=== PATIENT | female | born 1940 | race Caucasian/White ===

== ENCOUNTER 2020-05-09 10:58 | Inpatient (IN) | payer MEDICARE, BC ==
[2020-05-09] MEDS ORDERED: Acetaminophen 325 MG Tab PO PRN (12:34)
[2020-05-09] MEDS ORDERED: Temazepam 15 MG Cap PO PRN (12:34)
[2020-05-09] MEDS ORDERED: Ondansetron 4 MG Tab.DIS PO PRN (12:34)
--- NOTE | 2020-05-09 12:47 | PCM.HP ---
H&P History of Present Illness - General Date of Service: 05/09/20 Admit Problem/Dx: Admission Diagnosis/Problem Admission Diagnosis/Problem Weakness Source of Information: Patient - History of Present Illness Initial Comments - Free Text/Narative: Is a 80-year-old female with medical history of gastroesophageal reflux disease, spinal stenosis with hx of previous back surgery. The patient underwent repeat surgery couple of days ago. Has been recovering but feels weak. The patient is admitted to swing bed for continuation of physical and occupational therapy - Related Data Allergies/Adverse Reactions: Allergies Allergy/AdvReac Type Severity Reaction Status Date / Time alendronate sodium Allergy Nausea Verified 05/08/20 15:23 [From Fosamax] amoxicillin Allergy Other Verified 05/08/20 15:23 fentanyl Allergy Nausea and Verified 05/08/20 15:23 Vomiting psyllium [From Metamucil] Allergy Abdominal Verified 05/08/20 15:23 Cramps Sulfa (Sulfonamide Allergy Rash Verified 05/08/20 15:23 Antibiotics) Home Medications: Home Meds Acetaminophen/HYDROcodone [[place] 325-10 MG] 1 tab PO Q4HR PRN 05/08/20 [History] Hydrocortisone [Anusol-HC] 1 applic TOP DAILY 05/08/20 [History] L. 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 Spondylosis of cervical region without myelopathy or radiculopathy Social & Family History - Family History Family Medical History: No Pertinent Family History - Tobacco Use Tobacco Use Status *Q: Never Tobacco User Second Hand Smoke Exposure: No - Caffeine Use Caffeine Use: Reports: Coffee - Alcohol Use Days Per Week of Alcohol Use: 5 Number of Drinks Per Day: 1 Total Drinks Per Week: 5 Date of Last Drink: 04/30/20 - Recreational Drug Use Recreational Drug Use: No H&P Review of Systems - Review of Systems: Review Of Systems: See Below General: Reports: Malaise, Weakness Pulmonary: Reports: No Symptoms Cardiovascular: Reports: No Symptoms Gastrointestinal: Reports: No Symptoms Musculoskeletal: Reports: No Symptoms Skin: Reports: No Symptoms Exam - Exam Exam: See Below - Vital Signs Weight: 54.885 kg - Exam Quality Assessment: Supplemental Oxygen General: Alert, Oriented, Cooperative Neck: Supple, Trachea Midline, 2 Lungs: Clear to Auscultation, Normal Respiratory Effort Cardiovascular: Regular Rate, Regular Rhythm GI/Abdominal Exam: Normal Bowel Sounds, Soft, Non-Tender, No Organomegaly, No Distention, No Abnormal Bruit, No Mass, Pelvis Stable Problem List Initiated/Reviewed/Updated: Yes Orders Last 24hrs: Active Orders 24 hr Category Date Time Status Patient Status [ADT] Routine ADT 05/09/20 11:09 Active Height and Weight [RC] PER UNIT ROUTINE Care 05/09/20 12:35 Ordered Intake and Output [RC] QSHIFT Care 05/09/20 12:35 Ordered Oxygen Therapy [RC] PRN Care 05/09/20 12:34 Ordered Up ad Kira [RC] ASDIRECTED Care 05/09/20 12:34 Ordered VTE/DVT Education [RC] PER UNIT ROUTINE Care 05/09/20 12:34 Ordered Vital Signs [RC] PER UNIT ROUTINE Care 05/09/20 12:34 Ordered OT Evaluation and Treatment [CONS] Routine Cons 05/09/20 12:34 Ordered PT Evaluation and Treatment [CONS] Routine Cons 05/09/20 12:34 Ordered Regular Diet [DIET] Diet 05/09/20 Lunch Active Acetaminophen [TylenoL] Med 05/09/20 12:34 Ordered 650 mg PO Q4H PRN Acetaminophen/HYDROcodone [[place] 325-10 MG] Med 05/09/20 12:34 Ordered 1 tab PO Q4HR PRN Docusate Sodium [Colace] Med 05/09/20 12:34 Ordered 100 mg PO BID PRN Hydrocortisone [Anusol-HC] Med 05/10/20 09:00 Ordered 1 applic TOP DAILY L. Acidophilus/Pectin, [place] [Acidophilus Capsule] Med 05/10/20 09:00 Ordered 10 mg PO DAILY Mirtazapine [Remeron] Med 05/09/20 21:00 Ordered 15 mg PO BEDTIME Multivitamin [Multivitamin] Med 05/10/20 09:00 Ordered 1 tab PO DAILY Omeprazole Med 05/10/20 09:00 Ordered 20 mg PO DAILY Ondansetron [Zofran ODT] Med 05/09/20 12:34 Ordered 4 mg PO Q6H PRN Temazepam [Restoril] Med 05/09/20 12:34 Ordered 15 mg PO BEDTIME PRN Resuscitation Status Routine Resus Stat 05/09/20 12:34 Ordered Medication Orders Acetaminophen (Tylenol) 650 mg PO Q4H PRN PRN Reason: Pain (Mild 1-3)/fever Hydrocodone Bitart/Acetaminophen ([place] 325-10 Mg) 1 tab PO Q4H PRN PRN Reason: Pain Docusate Sodium (Colace) 100 mg PO BID PRN PRN Reason: Constipation Mirtazapine (Remeron) 15 mg PO BEDTIME [facility] Multivitamins (Thera) 1 each PO DAILY [facility] Non-Formulary Medication (Hydrocortisone [Anusol-Hc]) 1 applic TOP DAILY [facility] Non-Formulary Medication (L. Acidophilus/Pectin, [place] [Acidophilus Capsule]) 10 mg PO DAILY [facility] Omeprazole (Omeprazole) 20 mg PO ACBREAKFAST [facility] Ondansetron HCl (Zofran Odt) 4 mg PO Q6H PRN PRN Reason: nausea, able to take PO Temazepam (Restoril) 15 mg PO BEDTIME PRN PRN Reason: Sleep Assessment/Plan Comment:: is a 80-year-old female who underwent surgery for chronic low back pain, spinal stenosis. She was transferred to swing bed for physical and occupational therapy. #. Status post spinal surgery Patient had surgery for spinal stenosis #. Gastroesophageal reflux disease Proton pump inhibitor #. Elevated blood pressure Hx has no history of chronic hypertension Admit patient to swing bed. Start patient on [place] for pain control Consult physical and occupational therapy Monitor vital signs.
[2020-05-09] MEDS: Acetaminophen/HYDROcodone 325-10 MG Tab PO PRN ×2 (15:52→21:41)
[2020-05-09] MEDS: Docusate Sodium 100 MG Cap PO PRN (21:20)
[2020-05-09] MEDS: Mirtazapine 15 MG Tab PO SCH (21:20)
[2020-05-10] MEDS: Omeprazole 20 MG Cap.CR PO SCH (06:31)
[2020-05-10] MEDS: Acetaminophen/HYDROcodone 325-10 MG Tab PO PRN ×2 (06:33→21:20)
[2020-05-10] MEDS: Multivitamins,Therapeutic Tab PO SCH (08:51)
[2020-05-10] MEDS: Calcium Carbonate/Vitamin D3 1250 MG-200 Unit Tab PO SCH (17:32)
[2020-05-10] MEDS: Mirtazapine 15 MG Tab PO SCH (21:20)
[2020-05-11] MEDS: Omeprazole 20 MG Cap.CR PO SCH (06:34)
[2020-05-11] MEDS: Calcium Carbonate/Vitamin D3 1250 MG-200 Unit Tab PO SCH ×2 (08:08→17:30)
[2020-05-11] MEDS: Acetaminophen/HYDROcodone 325-10 MG Tab PO PRN ×2 (08:08→20:47)
[2020-05-11] MEDS: Multivitamins,Therapeutic Tab PO SCH (08:08)
[2020-05-11] MEDS: Docusate Sodium 100 MG Cap PO PRN (20:47)
[2020-05-11] MEDS: Mirtazapine 15 MG Tab PO SCH (20:47)
[2020-05-12] MEDS: Omeprazole 20 MG Cap.CR PO SCH (05:45)
[2020-05-12] MEDS: Calcium Carbonate/Vitamin D3 1250 MG-200 Unit Tab PO SCH ×2 (09:11→18:00)
[2020-05-12] MEDS: Multivitamins,Therapeutic Tab PO SCH (09:12)
[2020-05-12] MEDS: Docusate Sodium 100 MG Cap PO PRN (09:27)
[2020-05-12] MEDS: Mirtazapine 15 MG Tab PO SCH (21:00)
[2020-05-12] MEDS: Acetaminophen/HYDROcodone 325-10 MG Tab PO PRN (21:01)
[2020-05-13] MEDS: Omeprazole 20 MG Cap.CR PO SCH (06:34)
[2020-05-13] MEDS: Multivitamins,Therapeutic Tab PO SCH (08:06)
[2020-05-13] MEDS: Calcium Carbonate/Vitamin D3 1250 MG-200 Unit Tab PO SCH ×2 (08:06→17:28)
[2020-05-13] MEDS: Acetaminophen/HYDROcodone 325-10 MG Tab PO PRN ×3 (08:49→21:04)
[2020-05-13] MEDS ORDERED: Hydrocortisone 2.5% Crm 30 GM Tube TOP SCH (09:00)
[2020-05-13] MEDS ORDERED: Hydrocortisone 2.5% Crm 30 GM Tube TOP PRN (10:27)
[2020-05-13] MEDS ORDERED: Lactulose Soln 10 GM/15 ML 30 ML UD Cup PO PRN (13:02)
[2020-05-13] MEDS: Polyethylene Glycol 3350 Powder 17 GM Packet PO SCH (13:49)
[2020-05-13] MEDS ORDERED: Heparin Sodium 5,000 Units/ML Vial SUBCUT SCH (14:00)
[2020-05-13] MEDS: Mirtazapine 15 MG Tab PO SCH (21:04)
[2020-05-14] MEDS: Omeprazole 20 MG Cap.CR PO SCH (05:51)
[2020-05-14] MEDS: Multivitamins,Therapeutic Tab PO SCH (08:20)
[2020-05-14] MEDS: Calcium Carbonate/Vitamin D3 1250 MG-200 Unit Tab PO SCH ×2 (08:20→17:01)
[2020-05-14] MEDS: Acetaminophen/HYDROcodone 325-10 MG Tab PO PRN ×2 (08:21→17:01)
[2020-05-14] MEDS: Polyethylene Glycol 3350 Powder 17 GM Packet PO SCH (08:22)
[2020-05-14 12:26] LABS: ANION GAP 12.3 mEq/L (7-13); CHLORIDE,CL 98 mmol/L (98-107); SODIUM,NA 136 mmol/L (136-145)
[2020-05-14] MEDS: Enoxaparin 40 MG/0.4 ML Syringe SUBCUT SCH (13:19)
--- NOTE | 2020-05-14 13:21 | PCM.PN ---
- General Info Date of Service: 05/14/20 Subjective Update: feeling well Does have some low back pain, moderate, worse with activity, associated with the right leg pain radiating from the back to the knee area. This is since surgery Tolerating it well. No chest pain, no shortness of breath. Working with physical therapy - Review of Systems General: Reports: Weakness, Night Sweats. Denies: Fever Pulmonary: Denies: Shortness of Breath Cardiovascular: Denies: Chest Pain, Edema Genitourinary: Denies: Dysuria Neurological: Denies: Headache Psychiatric: Denies: Confusion - Patient Data Vitals - Most Recent: Last Vital Signs Temp 98.1 F 05/14/20 07:46 Pulse 68 05/14/20 07:46 Resp 18 05/14/20 07:46 BP 148/82 H 05/14/20 07:46 Pulse Ox 94 L 05/14/20 07:46 Weight - Most Recent: 112 lb 9.6 oz I&O - Last 24 Hours: Intake & Output 05/13/20 05/14/20 05/14/20 22:59 06:59 14:59 Intake Total 740 940 Balance 740 940 Lab Results Last 24 Hours: Laboratory Results - last 24 hr 05/14/20 05/14/20 Range/Units 12:07 12:07 WBC 5.9 (5.0-10.0) 10^3/uL RBC 3.73 L (4.2-5.4) 10^6/uL Hgb 12.0 (12.0-16.0) g/dL Hct 35.7 L (37.0-47.0) % MCV 95.7 (80-100) fL MCH 32.2 (27.0-34.0) pg MCHC 33.6 (33.0-35.0) g/dL Plt Count 280 (150-450) 10^3/uL Neut % (Auto) 60.6 (42.2-75.2) % Lymph % (Auto) 27.6 (20.5-50.1) % [place] % (Auto) 9.4 H (2-8) % Eos % (Auto) 1.7 (1.0-3.0) % Baso % (Auto) 0.7 (0.0-1.0) % Sodium 136 (136-145) mmol/L Potassium 4.3 (3.5-5.1) mmol/L Chloride 98 (98-107) mmol/L Carbon Dioxide 30 (21-32) mmol/L Anion Gap 12.3 (7-13) mEq/L BUN 17 (7-18) mg/dL Creatinine 0.74 (0.55-1.02) mg/dL Est Cr Clr Drug Dosing 49.70 mL/min Estimated GFR (MDRD) > 60 Glucose 87 (74-99) mg/dL Calcium 9.0 (8.5-10.1) mg/dL Med Orders - Current: Current Medications Acetaminophen (Tylenol) 650 mg PO Q4H PRN PRN Reason: Pain (Mild 1-3)/fever Hydrocodone Bitart/Acetaminophen ([place] 325-10 Mg) 1 tab PO Q4H PRN PRN Reason: Pain Last Admin: 05/14/20 08:21 Dose: 1 tab Documented by: Calcium Carbonate (Calcium Carbonate/Vitamin D 1250 Mg-200 Unit) 1 tab PO BIDMEALS [facility] Last Admin: 05/14/20 08:20 Dose: 1 tab Documented by: Docusate Sodium (Colace) 100 mg PO BID PRN PRN Reason: Constipation Last Admin: 05/12/20 09:27 Dose: 100 mg Documented by: Enoxaparin Sodium (Lovenox) 40 mg SUBCUT DAILY [facility] Hydrocortisone (Hydrocortisone 2.5% Crm) 1 gm TOP DAILY PRN PRN Reason: Hemorrhoids Lactulose (Cephulac) 20 gm PO BID PRN PRN Reason: Constipation Last Admin: 05/13/20 13:49 Dose: 20 gm Documented by: Mirtazapine (Remeron) 15 mg PO BEDTIME [facility] Last Admin: 05/13/20 21:04 Dose: 15 mg Documented by: Multivitamins (Thera) 1 each PO DAILY [facility] Last Admin: 05/14/20 08:20 Dose: 1 each Documented by: Non-Formulary Medication (L. Acidophilus/Pectin, [place] [Acidophilus Capsule]) 10 mg PO DAILY [facility] Omeprazole (Omeprazole) 20 mg PO ACBREAKFAST [facility] Last Admin: 05/14/20 05:51 Dose: 20 mg Documented by: Ondansetron HCl (Zofran Odt) 4 mg PO Q6H PRN PRN Reason: nausea, able to take PO Polyethylene Glycol (Miralax) 17 gm PO DAILY [facility] Last Admin: 05/14/20 08:22 Dose: Not Given Documented by: Senna/Docusate Sodium (Senna Plus) 1 tab PO BID [facility] Last Admin: 05/14/20 08:20 Dose: 1 tab Documented by: Temazepam (Restoril) 15 mg PO BEDTIME PRN PRN Reason: Sleep Discontinued Medications Heparin Sodium (Porcine) (Heparin Sodium) 5,000 units SUBCUT Q8HR [facility] Last Admin: 05/13/20 13:45 Dose: 5,000 units Documented by: Hydrocortisone (Hydrocortisone 2.5% Crm) 0 gm TOP DAILY [facility] Last Admin: 05/13/20 08:50 Dose: Not Given Documented by: - Exam General: Alert, Oriented Neck: Supple Lungs: Clear to Auscultation, Normal Respiratory Effort Cardiovascular: Regular Rate, Regular Rhythm GI/Abdominal Exam: Normal Bowel Sounds, Soft, Non-Tender Extremities: No Pedal Edema Sepsis Event Note - Evaluation Sepsis Screening Result: No Definite Risk - Focused Exam Vital Signs: Vital Signs Temp Pulse Resp BP Pulse Ox 05/14/20 07:46 98.1 F 68 18 148/82 H 94 L - Problem List & Annotations (1) Back pain SNOMED Code(s): 956248584 Code(s): M54.9 - DORSALGIA, UNSPECIFIED Status: Acute Current Visit: Yes (2) GERD (gastroesophageal reflux disease) SNOMED Code(s): 852232050 Code(s): K21.9 - GASTRO-ESOPHAGEAL REFLUX DISEASE WITHOUT ESOPHAGITIS Status: Acute Current Visit: Yes - Problem List Review Problem List Initiated/Reviewed/Updated: Yes - My Orders Last 24 Hours: My Active Orders 05/13/20 13:02 Lactulose [Cephulac] 20 gm PO BID PRN 05/13/20 13:15 polyethylene glycoL 3350 [MiraLAX] 17 gm PO DAILY 05/14/20 13:00 Enoxaparin [Lovenox] 40 mg SUBCUT DAILY 05/18/20 05:15 BASIC METABOLIC PANEL,BMP [CHEM] AM CBC WITH AUTO DIFF [HEME] AM - Plan Plan:: 80-year-old female who underwent surgery for chronic low back pain, spinal stenosis. She was transferred to [facility] bed for physical and occupational therapy. #. Status post spinal surgery Patient had surgery for spinal stenosis we will continue to work physical therapy and occupational therapy #. Gastroesophageal reflux disease Proton pump inhibitor #. episodically Elevated blood pressure Hx has no history of chronic hypertension we'll monitor, will not start blood pressure medications at this time DVT prophylaxis with Lovenox
[2020-05-14] MEDS: Mirtazapine 15 MG Tab PO SCH (21:43)
[2020-05-14] MEDS: [UNRECOGNIZED DRUG - MIXTURE] PO SCH ×2 (22:06→22:07)
[2020-05-15] MEDS: Omeprazole 20 MG Cap.CR PO SCH (05:52)
[2020-05-15] MEDS: Acetaminophen/HYDROcodone 325-10 MG Tab PO PRN ×3 (05:52→21:20)
[2020-05-15] MEDS: Multivitamins,Therapeutic Tab PO SCH (09:46)
[2020-05-15] MEDS: Calcium Carbonate/Vitamin D3 1250 MG-200 Unit Tab PO SCH ×2 (09:46→17:51)
[2020-05-15] MEDS: Polyethylene Glycol 3350 Powder 17 GM Packet PO SCH (09:47)
[2020-05-15] MEDS: Enoxaparin 40 MG/0.4 ML Syringe SUBCUT SCH (09:47)
[2020-05-15] MEDS: Mirtazapine 15 MG Tab PO SCH (21:19)
[2020-05-16] MEDS: Omeprazole 20 MG Cap.CR PO SCH (06:09)
[2020-05-16] MEDS: Polyethylene Glycol 3350 Powder 17 GM Packet PO SCH ×2 (08:04→09:30)
[2020-05-16] MEDS: Calcium Carbonate/Vitamin D3 1250 MG-200 Unit Tab PO SCH ×2 (08:04→17:16)
[2020-05-16] MEDS: Enoxaparin 40 MG/0.4 ML Syringe SUBCUT SCH (08:04)
[2020-05-16] MEDS: Multivitamins,Therapeutic Tab PO SCH (08:04)
[2020-05-16] MEDS: Mirtazapine 15 MG Tab PO SCH (21:03)
[2020-05-16] MEDS: Acetaminophen/HYDROcodone 325-10 MG Tab PO PRN (22:20)
[2020-05-17] MEDS: Acetaminophen/HYDROcodone 325-10 MG Tab PO PRN ×2 (06:41→20:09)
[2020-05-17] MEDS: Omeprazole 20 MG Cap.CR PO SCH (06:41)
[2020-05-17] MEDS: Calcium Carbonate/Vitamin D3 1250 MG-200 Unit Tab PO SCH ×2 (08:03→17:24)
[2020-05-17] MEDS: Enoxaparin 40 MG/0.4 ML Syringe SUBCUT SCH (08:04)
[2020-05-17] MEDS: Multivitamins,Therapeutic Tab PO SCH (08:31)
[2020-05-17] MEDS: Polyethylene Glycol 3350 Powder 17 GM Packet PO SCH (08:31)
[2020-05-17] MEDS: Mirtazapine 15 MG Tab PO SCH (21:14)
[2020-05-18] MEDS: Acetaminophen/HYDROcodone 325-10 MG Tab PO PRN ×2 (03:40→20:37)
[2020-05-18] MEDS ORDERED: amLODIPine 5 MG Tab PO ONE (04:54)
[2020-05-18] MEDS: Omeprazole 20 MG Cap.CR PO SCH ×2 (05:15→06:00)
[2020-05-18 06:49] LABS: ANION GAP 8.4 mEq/L (7-13); CHLORIDE,CL 101 mmol/L (98-107); SODIUM,NA 138 mmol/L (136-145)
[2020-05-18] MEDS: Calcium Carbonate/Vitamin D3 1250 MG-200 Unit Tab PO SCH ×2 (08:21→17:13)
[2020-05-18] MEDS: Enoxaparin 40 MG/0.4 ML Syringe SUBCUT SCH (08:21)
[2020-05-18] MEDS: Multivitamins,Therapeutic Tab PO SCH (08:21)
[2020-05-18] MEDS: Polyethylene Glycol 3350 Powder 17 GM Packet PO SCH (08:23)
--- NOTE | 2020-05-18 12:04 | PCM.PN ---
- General Info Date of Service: 05/18/20 Admission Dx/Problem (Free Text): Admission Diagnosis/Problem Admission Diagnosis/Problem Weakness Subjective Update: feeling well last night noted chronic right knee pain, got better after pain medication Was associated with high blood pressures Got a dose of Norvasc by mouth No chest pain, no shortness of breath. Working with physical therapy Functional Status: Reports: Tolerating Diet, Ambulating - Review of Systems General: Reports: Weakness. Denies: Fever Pulmonary: Denies: Shortness of Breath Cardiovascular: Denies: Chest Pain, Edema Gastrointestinal: Denies: Abdominal Pain Genitourinary: Denies: Dysuria - Patient Data Vitals - Most Recent: Last Vital Signs Temp 98.7 F 05/18/20 08:00 Pulse 69 05/18/20 08:00 Resp 20 05/18/20 08:00 BP 147/90 H 05/18/20 08:00 Pulse Ox 100 05/18/20 08:00 Weight - Most Recent: 112 lb 9.6 oz I&O - Last 24 Hours: Intake & Output 05/17/20 05/18/20 05/18/20 22:59 06:59 14:59 Intake Total 150 150 650 Balance 150 150 650 Lab Results Last 24 Hours: Laboratory Results - last 24 hr 05/18/20 05/18/20 Range/Units 06:08 06:08 WBC 4.9 L (5.0-10.0) 10^3/uL RBC 3.88 L (4.2-5.4) 10^6/uL Hgb 12.5 (12.0-16.0) g/dL Hct 37.3 (37.0-47.0) % MCV 96.1 (80-100) fL MCH 32.2 (27.0-34.0) pg MCHC 33.5 (33.0-35.0) g/dL Plt Count 324 (150-450) 10^3/uL Neut % (Auto) 60.2 (42.2-75.2) % Lymph % (Auto) 28.7 (20.5-50.1) % [place] % (Auto) 7.9 (2-8) % Eos % (Auto) 2.4 (1.0-3.0) % Baso % (Auto) 0.8 (0.0-1.0) % Sodium 138 (136-145) mmol/L Potassium 4.4 (3.5-5.1) mmol/L Chloride 101 (98-107) mmol/L Carbon Dioxide 33 H (21-32) mmol/L Anion Gap 8.4 (7-13) mEq/L BUN 14 (7-18) mg/dL Creatinine 0.81 (0.55-1.02) mg/dL Est Cr Clr Drug Dosing 45.41 mL/min Estimated GFR (MDRD) > 60 Glucose 93 (74-99) mg/dL Calcium 9.3 (8.5-10.1) mg/dL Med Orders - Current: Current Medications Acetaminophen (Tylenol) 650 mg PO Q4H PRN PRN Reason: Pain (Mild 1-3)/fever Hydrocodone Bitart/Acetaminophen ([place] 325-10 Mg) 1 tab PO Q4H PRN PRN Reason: Pain Last Admin: 05/18/20 03:40 Dose: 1 tab Documented by: Calcium Carbonate (Calcium Carbonate/Vitamin D 1250 Mg-200 Unit) 1 tab PO BIDMEALS [facility] Last Admin: 05/18/20 08:21 Dose: 1 tab Documented by: Docusate Sodium (Colace) 100 mg PO BID PRN PRN Reason: Constipation Last Admin: 05/12/20 09:27 Dose: 100 mg Documented by: Enoxaparin Sodium (Lovenox) 40 mg SUBCUT DAILY [facility] Last Admin: 05/18/20 08:21 Dose: 40 mg Documented by: Hydrocortisone (Hydrocortisone 2.5% Crm) 1 gm TOP DAILY PRN PRN Reason: Hemorrhoids Lactulose (Cephulac) 20 gm PO BID PRN PRN Reason: Constipation Last Admin: 05/13/20 13:49 Dose: 20 gm Documented by: Mirtazapine (Remeron) 15 mg PO BEDTIME [facility] Last Admin: 05/17/20 21:14 Dose: 15 mg Documented by: Multivitamins (Thera) 1 each PO DAILY [facility] Last Admin: 05/18/20 08:21 Dose: 1 each Documented by: Omeprazole (Omeprazole) 20 mg PO ACBREAKFAST [facility] Last Admin: 05/18/20 06:00 Dose: Not Given Documented by: Ondansetron HCl (Zofran Odt) 4 mg PO Q6H PRN PRN Reason: nausea, able to take PO Polyethylene Glycol (Miralax) 17 gm PO DAILY [facility] Last Admin: 05/18/20 08:23 Dose: Not Given Documented by: Senna/Docusate Sodium (Senna Plus) 1 tab PO BID [facility] Last Admin: 05/18/20 08:21 Dose: 1 tab Documented by: Temazepam (Restoril) 15 mg PO BEDTIME PRN PRN Reason: Sleep Discontinued Medications Amlodipine Besylate (Norvasc) 2.5 mg PO ONETIME ONE Stop: 05/18/20 04:55 Last Admin: 05/18/20 05:06 Dose: 2.5 mg Documented by: Heparin Sodium (Porcine) (Heparin Sodium) 5,000 units SUBCUT Q8HR [facility] Last Admin: 05/13/20 13:45 Dose: 5,000 units Documented by: Hydrocortisone (Hydrocortisone 2.5% Crm) 0 gm TOP DAILY [facility] Last Admin: 05/13/20 08:50 Dose: Not Given Documented by: Non-Formulary Medication (L. Acidophilus/Pectin, [place] [Acidophilus Capsule]) 10 mg PO DAILY [facility] Last Admin: 05/14/20 22:07 Dose: Not Given Documented by: - Exam General: Alert Neck: Supple Lungs: Clear to Auscultation, Normal Respiratory Effort Cardiovascular: Regular Rate, Regular Rhythm GI/Abdominal Exam: Normal Bowel Sounds, Soft, Non-Tender Extremities: No Pedal Edema Sepsis Event Note - Evaluation Sepsis Screening Result: No Definite Risk - Focused Exam Vital Signs: Vital Signs Temp Pulse Resp BP BP Pulse Ox 05/18/20 08:00 98.7 F 69 20 147/90 H 100 05/18/20 05:06 168/91 H - Problem List & Annotations (1) Back pain SNOMED Code(s): 939020983 Code(s): M54.9 - DORSALGIA, UNSPECIFIED Status: Acute Current Visit: Yes (2) GERD (gastroesophageal reflux disease) SNOMED Code(s): 358544859 Code(s): K21.9 - GASTRO-ESOPHAGEAL REFLUX DISEASE WITHOUT ESOPHAGITIS S tatus: Acute Current Visit: Yes - Problem List Review Problem List Initiated/Reviewed/Updated: Yes - Plan Plan:: 80-year-old female who underwent surgery for chronic low back pain, spinal stenosis. She was transferred to [facility] for physical and occupational therapy. #. Status post spinal surgery Patient had surgery for spinal stenosis she will continue to work with physical therapy and occupational therapy #. Gastroesophageal reflux disease Proton pump inhibitor #. episodically Elevated blood pressure Hx has no history of chronic hypertension start norvas control pain DVT prophylaxis with Lovenox
[2020-05-18] MEDS: Mirtazapine 15 MG Tab PO SCH (20:37)
[2020-05-19] MEDS: Acetaminophen/HYDROcodone 325-10 MG Tab PO PRN ×2 (01:10→21:32)
[2020-05-19] MEDS: Omeprazole 20 MG Cap.CR PO SCH (05:52)
[2020-05-19] MEDS: Enoxaparin 40 MG/0.4 ML Syringe SUBCUT SCH (08:56)
[2020-05-19] MEDS: Calcium Carbonate/Vitamin D3 1250 MG-200 Unit Tab PO SCH ×2 (08:56→17:08)
[2020-05-19] MEDS: Polyethylene Glycol 3350 Powder 17 GM Packet PO SCH (08:57)
[2020-05-19] MEDS: Multivitamins,Therapeutic Tab PO SCH (08:57)
[2020-05-19] MEDS: amLODIPine 5 MG Tab PO SCH (11:57)
[2020-05-19] MEDS: Mirtazapine 15 MG Tab PO SCH (21:32)
[2020-05-20] MEDS: Omeprazole 20 MG Cap.CR PO SCH (06:01)
[2020-05-20] MEDS: amLODIPine 5 MG Tab PO SCH (08:27)
[2020-05-20] MEDS: Multivitamins,Therapeutic Tab PO SCH (08:28)
[2020-05-20] MEDS: Calcium Carbonate/Vitamin D3 1250 MG-200 Unit Tab PO SCH ×2 (08:28→17:44)
[2020-05-20] MEDS: Polyethylene Glycol 3350 Powder 17 GM Packet PO SCH (08:28)
[2020-05-20] MEDS: Enoxaparin 40 MG/0.4 ML Syringe SUBCUT SCH (08:29)
[2020-05-20] MEDS: Mirtazapine 15 MG Tab PO SCH (20:48)
[2020-05-20] MEDS: Acetaminophen/HYDROcodone 325-10 MG Tab PO PRN (20:48)
[2020-05-21] MEDS: traMADol 50 MG Tab PO PRN (03:17)
[2020-05-21] MEDS: Omeprazole 20 MG Cap.CR PO SCH (05:48)
[2020-05-21] MEDS: Polyethylene Glycol 3350 Powder 17 GM Packet PO SCH (08:56)
[2020-05-21] MEDS: amLODIPine 5 MG Tab PO SCH (08:56)
[2020-05-21] MEDS: Calcium Carbonate/Vitamin D3 1250 MG-200 Unit Tab PO SCH ×2 (08:56→18:22)
[2020-05-21] MEDS: Enoxaparin 40 MG/0.4 ML Syringe SUBCUT SCH (08:56)
[2020-05-21] MEDS: Multivitamins,Therapeutic Tab PO SCH (08:57)
[2020-05-21] MEDS: Mirtazapine 15 MG Tab PO SCH (21:34)
[2020-05-21] MEDS: Acetaminophen/HYDROcodone 325-10 MG Tab PO PRN (21:43)
[2020-05-22] MEDS: Omeprazole 20 MG Cap.CR PO SCH (05:36)
[2020-05-22] MEDS: Multivitamins,Therapeutic Tab PO SCH (08:58)
[2020-05-22] MEDS: amLODIPine 5 MG Tab PO SCH (08:58)
[2020-05-22] MEDS: Polyethylene Glycol 3350 Powder 17 GM Packet PO SCH (08:59)
[2020-05-22] MEDS: Calcium Carbonate/Vitamin D3 1250 MG-200 Unit Tab PO SCH ×2 (08:59→17:19)
[2020-05-22] MEDS: Enoxaparin 40 MG/0.4 ML Syringe SUBCUT SCH (08:59)
[2020-05-22] MEDS: Acetaminophen/HYDROcodone 325-10 MG Tab PO PRN (21:44)
[2020-05-22] MEDS: Mirtazapine 15 MG Tab PO SCH (21:44)
[2020-05-23] MEDS: Omeprazole 20 MG Cap.CR PO SCH (05:10)
[2020-05-23] MEDS: Calcium Carbonate/Vitamin D3 1250 MG-200 Unit Tab PO SCH ×2 (08:28→17:57)
[2020-05-23] MEDS: amLODIPine 5 MG Tab PO SCH (08:29)
[2020-05-23] MEDS: Multivitamins,Therapeutic Tab PO SCH (08:29)
[2020-05-23] MEDS: Polyethylene Glycol 3350 Powder 17 GM Packet PO SCH (08:30)
[2020-05-23] MEDS: Enoxaparin 40 MG/0.4 ML Syringe SUBCUT SCH (08:30)
[2020-05-23] MEDS: Acetaminophen/HYDROcodone 325-10 MG Tab PO PRN (21:45)
[2020-05-23] MEDS: Mirtazapine 15 MG Tab PO SCH (21:45)
[2020-05-24] MEDS: Omeprazole 20 MG Cap.CR PO SCH (06:02)
[2020-05-24] MEDS: Calcium Carbonate/Vitamin D3 1250 MG-200 Unit Tab PO SCH ×2 (08:51→17:23)
[2020-05-24] MEDS: Multivitamins,Therapeutic Tab PO SCH (08:51)
[2020-05-24] MEDS: Enoxaparin 40 MG/0.4 ML Syringe SUBCUT SCH (08:52)
[2020-05-24] MEDS: amLODIPine 5 MG Tab PO SCH (08:52)
[2020-05-24] MEDS: Polyethylene Glycol 3350 Powder 17 GM Packet PO SCH (08:53)
[2020-05-24] MEDS ORDERED: Lidocaine 5% 700 MG Patch TRDERM SCH (11:45)
[2020-05-24] MEDS: Lidocaine 5% 700 MG Patch TRDERM SCH (21:18)
[2020-05-24] MEDS: traMADol 50 MG Tab PO PRN (21:25)
[2020-05-24] MEDS: Mirtazapine 15 MG Tab PO SCH (21:26)
[2020-05-25] MEDS: Omeprazole 20 MG Cap.CR PO SCH (05:54)
[2020-05-25] MEDS: Enoxaparin 40 MG/0.4 ML Syringe SUBCUT SCH (08:48)
[2020-05-25] MEDS: Multivitamins,Therapeutic Tab PO SCH (08:49)
[2020-05-25] MEDS: Calcium Carbonate/Vitamin D3 1250 MG-200 Unit Tab PO SCH ×2 (08:49→17:56)
[2020-05-25] MEDS: amLODIPine 5 MG Tab PO SCH (08:49)
[2020-05-25] MEDS: Polyethylene Glycol 3350 Powder 17 GM Packet PO SCH (09:00)
[2020-05-25] MEDS ORDERED: Acetaminophen/HYDROcodone 325-10 MG Tab PO PRN ×2 (10:44→17:48)
--- NOTE | 2020-05-25 10:48 | PCM.PN ---
- General Info Date of Service: 05/25/20 Admission Dx/Problem (Free Text): Admission Diagnosis/Problem Admission Diagnosis/Problem Weakness Subjective Update: Is a 80-year-old female with medical history of gastroesophageal reflux disease, spinal stenosis with hx of previous back surgery. The patient underwent repeat surgery. Has been recovering but feels weak. Was discharged to [facility] for continuation of physical and occupational therapy Patient was seen and examined today. Chart reviewed. She is doing okay. Offers no new complaint Overnight uneventful. Functional Status: Reports: Pain Controlled - Review of Systems General: Reports: No Symptoms HEENT: Reports: No Symptoms Pulmonary: Reports: No Symptoms Cardiovascular: Reports: No Symptoms Gastrointestinal: Reports: No Symptoms Genitourinary: Reports: No Symptoms Musculoskeletal: Reports: No Symptoms Skin: Reports: No Symptoms Neurological: Reports: No Symptoms Psychiatric: Reports: No Symptoms - Patient Data Vitals - Most Recent: Last Vital Signs Temp 98.3 F 05/25/20 08:00 Pulse 83 05/25/20 08:00 Resp 18 05/25/20 08:00 BP 111/74 05/25/20 08:49 Pulse Ox 96 05/25/20 08:00 Weight - Most Recent: 110 lb I&O - Last 24 Hours: Intake & Output 05/24/20 05/25/20 05/25/20 22:59 06:59 14:59 Intake Total 450 200 Balance 450 200 Med Orders - Current: Current Medications Acetaminophen (Tylenol) 650 mg PO Q4H PRN PRN Reason: Pain (Mild 1-3)/fever Hydrocodone Bitart/Acetaminophen ([place] 325-10 Mg) 1 tab PO Q6H PRN PRN Reason: Pain (severe 7-10) Amlodipine Besylate (Norvasc) 2.5 mg PO DAILY [facility] Last Admin: 05/25/20 08:49 Dose: 2.5 mg Documented by: Calcium Carbonate (Calcium Carbonate/Vitamin D 1250 Mg-200 Unit) 1 tab PO BIDMEALS [facility] Last Admin: 05/25/20 08:49 Dose: 1 tab Documented by: Docusate Sodium (Colace) 100 mg PO BID PRN PRN Reason: Constipation Last Admin: 05/12/20 09:27 Dose: 100 mg Documented by: Enoxaparin Sodium (Lovenox) 40 mg SUBCUT DAILY [facility] Last Admin: 05/25/20 08:48 Dose: 40 mg Documented by: Hydrocortisone (Hydrocortisone 2.5% Crm) 1 gm TOP DAILY PRN PRN Reason: Hemorrhoids Lactulose (Cephulac) 20 gm PO BID PRN PRN Reason: Constipation Last Admin: 05/13/20 13:49 Dose: 20 gm Documented by: Lidocaine (Lidoderm 5%) 700 mg TRDERM DAILY@2100 [facility] Last Admin: 05/24/20 21:18 Dose: 700 mg Documented by: Mirtazapine (Remeron) 15 mg PO BEDTIME [facility] Last Admin: 05/24/20 21:26 Dose: Not Given Documented by: Miscellaneous Information (Remove Patch) 1 ea TRDERM DAILY [facility] Last Admin: 05/25/20 09:00 Dose: 1 ea Documented by: Multivitamins (Thera) 1 each PO DAILY [facility] Last Admin: 05/25/20 08:49 Dose: 1 each Documented by: Omeprazole (Omeprazole) 20 mg PO ACBREAKFAST [facility] Last Admin: 05/25/20 05:54 Dose: 20 mg Documented by: Ondansetron HCl (Zofran Odt) 4 mg PO Q6H PRN PRN Reason: nausea, able to take PO Polyethylene Glycol (Miralax) 17 gm PO DAILY [facility] Last Admin: 05/25/20 09:00 Dose: Not Given Documented by: Senna/Docusate Sodium (Senna Plus) 1 tab PO BID [facility] Last Admin: 05/25/20 08:49 Dose: 1 tab Documented by: Temazepam (Restoril) 15 mg PO BEDTIME PRN PRN Reason: Sleep Tramadol HCl (Ultram) 50 mg PO Q8H PRN PRN Reason: Pain (moderate 4-6) Last Admin: 05/24/20 21:25 Dose: 50 mg Documented by: Discontinued Medications Hydrocodone Bitart/Acetaminophen ([place] 325-10 Mg) 1 tab PO Q4H PRN PRN Reason: Pain (moderate 4-6) Last Admin: 05/23/20 21:45 Dose: 1 tab Documented by: Amlodipine Besylate (Norvasc) 2.5 mg PO ONETIME ONE Stop: 05/18/20 04:55 Last Admin: 05/18/20 05:06 Dose: 2.5 mg Documented by: Heparin Sodium (Porcine) (Heparin Sodium) 5,000 units SUBCUT Q8HR [facility] Last Admin: 05/13/20 13:45 Dose: 5,000 units Documented by: Hydrocortisone (Hydrocortisone 2.5% Crm) 0 gm TOP DAILY [facility] Last Admin: 05/13/20 08:50 Dose: Not Given Documented by: Lidocaine (Lidoderm 5%) 700 mg TRDERM DAILY [facility] Last Admin: 05/24/20 15:07 Dose: Not Given Documented by: Non-Formulary Medication (L. Acidophilus/Pectin, [place] [Acidophilus Capsule]) 10 mg PO DAILY [facility] Last Admin: 05/14/20 22:07 Dose: Not Given Documented by: - Exam Quality Assessment: DVT Prophylaxis General: Alert, Oriented HEENT: Pupils Equal, Pupils Reactive, EOMI, Mucous Membr. Moist/[place] Neck: Supple Lungs: Clear to Auscultation, Normal Respiratory Effort Cardiovascular: Regular Rate, Regular Rhythm GI/Abdominal Exam: Normal Bowel Sounds, Soft, Non-Tender, No Organomegaly, No Distention, No Abnormal Bruit, No Mass, Pelvis Stable (Female) Exam: Normal External Exam, Normal Speculum Exam, Normal Bimanual E xam Back Exam: Normal Inspection, Full Range of Motion Extremities: Normal Inspection, Normal Range of Motion, Non-Tender, No Pedal Edema, Normal Capillary Refill Skin: Warm, Dry, Intact Wound/Incisions: Healing Well Neurological: No New Focal Deficit Psy/Mental Status: Alert, Normal Affect, Normal Mood - Patient Data Result Diagrams: 05/18/20 06:08 05/18/20 06:08 Sepsis Event Note - Evaluation Sepsis Screening Result: No Definite Risk - Focused Exam Vital Signs: Vital Signs Temp Pulse Resp BP BP Pulse Ox 05/25/20 08:49 111/74 05/25/20 08:00 98.3 F 83 18 111/74 96 - Problem List Review Problem List Initiated/Reviewed/Updated: Yes - My Orders Last 24 Hours: My Active Orders 05/24/20 21:00 Lidocaine 5% [Lidoderm 5%] 700 mg TRDERM DAILY@2100 05/25/20 09:00 Remove Patch 1 ea TRDERM DAILY 05/25/20 10:44 Acetaminophen/HYDROcodone [[place] 325-10 MG] 1 tab PO Q6H PRN - Plan Plan:: 80-year-old female who underwent surgery for chronic low back pain, spinal stenosis. She was transferred to swing bed for physical and occupational therapy. #Status post spinal surgery Continue to work with physical therapy and occupational therapy #Gastroesophageal reflux disease Continue pantoprazole #Episodically Elevated blood pressure without diagnosis of hypertension Continue norvasc Decrease pain control control DVT prophylaxis with Lovenox
[2020-05-25] MEDS ORDERED: fentaNYL 12 MCG/HR Transdermal Patch TRDERM SCH (17:15)
[2020-05-25] MEDS ORDERED: traMADol 50 MG Tab PO PRN (17:49)
[2020-05-25] MEDS: Lidocaine 5% 700 MG Patch TRDERM SCH (20:58)
[2020-05-25] MEDS: Mirtazapine 15 MG Tab PO SCH (20:58)
[2020-05-26] MEDS: Omeprazole 20 MG Cap.CR PO SCH (06:34)
[2020-05-26] MEDS: Multivitamins,Therapeutic Tab PO SCH (08:09)
[2020-05-26] MEDS: amLODIPine 5 MG Tab PO SCH (08:09)
[2020-05-26] MEDS: Calcium Carbonate/Vitamin D3 1250 MG-200 Unit Tab PO SCH ×2 (08:10→18:39)
[2020-05-26] MEDS: Polyethylene Glycol 3350 Powder 17 GM Packet PO SCH (08:12)
[2020-05-26] MEDS: Enoxaparin 40 MG/0.4 ML Syringe SUBCUT SCH (08:13)
[2020-05-26] MEDS: Mirtazapine 15 MG Tab PO SCH (23:05)
[2020-05-26] MEDS: Lidocaine 5% 700 MG Patch TRDERM SCH (23:05)
[2020-05-27] MEDS: Omeprazole 20 MG Cap.CR PO SCH (06:22)
[2020-05-27] MEDS: Multivitamins,Therapeutic Tab PO SCH (08:24)
[2020-05-27] MEDS: amLODIPine 5 MG Tab PO SCH (08:25)
[2020-05-27] MEDS: Calcium Carbonate/Vitamin D3 1250 MG-200 Unit Tab PO SCH ×2 (08:26→17:13)
[2020-05-27] MEDS: Enoxaparin 40 MG/0.4 ML Syringe SUBCUT SCH (08:26)
[2020-05-27] MEDS: Polyethylene Glycol 3350 Powder 17 GM Packet PO SCH (08:26)
[2020-05-27] MEDS: Mirtazapine 15 MG Tab PO SCH (21:52)
[2020-05-27] MEDS: Lidocaine 5% 700 MG Patch TRDERM SCH (21:52)
[2020-05-28] MEDS: Omeprazole 20 MG Cap.CR PO SCH (05:36)
[2020-05-28] MEDS: Polyethylene Glycol 3350 Powder 17 GM Packet PO SCH (08:55)
[2020-05-28] MEDS: amLODIPine 5 MG Tab PO SCH (08:56)
[2020-05-28] MEDS: Multivitamins,Therapeutic Tab PO SCH (08:56)
[2020-05-28] MEDS: Calcium Carbonate/Vitamin D3 1250 MG-200 Unit Tab PO SCH (08:56)
[2020-05-28] MEDS: Enoxaparin 40 MG/0.4 ML Syringe SUBCUT SCH (08:57)
--- NOTE | 2020-05-28 10:56 | PCM.DCSUM1 ---
Discharge Summary - Hospital Course Free Text/Narrative:: Patient is a 80-year-old female with a medical history of GERD and spinal stenosis status post previous spinal surgery who was admitted to swing bed after being discharged from the hospital following repeat spinal surgery. Patient has been aspirating with physical therapy and Occupational Therapy with noticeable improvements. She has been discharged today with home health with: -long-term for teaching of home medication regimen and monitoring of blood pressure and vitals. -Physical therapy for home exercise program for strengthening and reconditioning following swing bed stay -Occupational therapy for home safety evaluation and equipment needs Patient was counseled to follow-up with primary care doctor with a log of her blood pressures to determine whether she would need long-term antihypertensives or not. Diagnosis: Stroke: No - Discharge Data Discharge Date: 05/28/20 Discharge Disposition: Home, W Home Health Agency 06 Condition: Good - Referral to Home Health Date of Face to Face Encounter: 05/28/20 Reason for Homebound Status: Patient had spinal surgery Primary Care Physician: Ronald Thomson MD Skilled Need: long-term for teaching of home medication regimen and monitoring of blood pressure and vitals. Physical therapy for home exercise program for strengthening and reconditioning following swing bed stay. Occupational therapy for home safety evaluation and equipment needs. - Patient Summary/Data Consults: Consultations 05/09/20 12:34 OT Evaluation and Treatment [CONS] Routine PT Evaluation and Treatment [CONS] Routine - Discharge Plan *PRESCRIPTION DRUG MONITORING PROGRAM REVIEWED*: Not Applicable *COPY OF PRESCRIPTION DRUG MONITORING REPORT IN PATIENT [place]AVA: Not Applicable Home Medications: Home Meds Acetaminophen/HYDROcodone [[place] 325-10 MG] 1 tab PO Q4HR PRN 05/08/20 [History] Hydrocortisone [Anusol-HC] 1 applic TOP DAILY 05/08/20 [History] L. Acidophilus/Pectin, Riley [Acidophilus Capsule] 10 mg PO DAILY 05/08/20 [History] Mirtazapine 15 mg PO BEDTIME 05/08/20 [History] Multivitamin 1 tab PO DAILY 05/08/20 [History] Omeprazole 20 mg PO DAILY 05/08/20 [History] Patient Handouts: Spinal Fusion, Adult, [id number], Deconditioning, How to Take Your Blood Pressure Referrals: Ronald Thomson MD [Primary Care Provider] - - Discharge Summary/Plan Comment DC Time >30 min.: Yes - General Info Admission Dx/Problem (Free Text: Admission Diagnosis/Problem Admission Diagnosis/Problem Weakness Subjective Update: Patient seen examined today. Anticipating discharge. Has no new complaints. Ambulating with use of walker. Functional Status: Reports: Pain Controlled - Review of Systems General: Reports: No Symptoms HEENT: Reports: No Symptoms Pulmonary: Reports: No Symptoms Cardiovascular: Reports: No Symptoms Gastrointestinal: Reports: No Symptoms Genitourinary: Reports: No Symptoms Musculoskeletal: Reports: No Symptoms Skin: Reports: No Symptoms Neurological: Reports: No Symptoms Psychiatric: Reports: No Symptoms - Patient Data Vitals - Most Recent: Last Vital Signs Temp 96.9 F 05/28/20 08:00 Pulse 80 05/28/20 08:00 Resp 16 05/28/20 08:00 BP 137/94 H 05/28/20 08:56 Pulse Ox 98 05/28/20 08:00 Weight - Most Recent: 108 lb 6.4 oz I&O - Last 24 hours: Intake & Output 05/27/20 05/28/20 05/28/20 22:59 06:59 14:59 Intake Total 720 460 Balance 720 460 Med Orders - Current: Current Medications Acetaminophen (Tylenol) 650 mg PO Q4H PRN PRN Reason: Pain (Mild 1-3)/fever Hydrocodone Bitart/Acetaminophen ([place] 325-10 Mg) 1 tab PO Q6H PRN PRN Reason: Pain (severe 7-10) Amlodipine Besylate (Norvasc) 2.5 mg PO DAILY [facility] Last Admin: 05/28/20 08:56 Dose: 2.5 mg Documented by: Calcium Carbonate (Calcium Carbonate/Vitamin D 1250 Mg-200 Unit) 1 tab PO BIDMEALS [facility] Last Admin: 05/28/20 08:56 Dose: 1 tab Documented by: Docusate Sodium (Colace) 100 mg PO BID PRN PRN Reason: Constipation Last Admin: 05/12/20 09:27 Dose: 100 mg Documented by: Enoxaparin Sodium (Lovenox) 40 mg SUBCUT DAILY [facility] Last Admin: 05/28/20 08:57 Dose: 40 mg Documented by: Hydrocortisone (Hydrocortisone 2.5% Crm) 1 gm TOP DAILY PRN PRN Reason: Hemorrhoids Lactulose (Cephulac) 20 gm PO BID PRN PRN Reason: Constipation Last Admin: 05/13/20 13:49 Dose: 20 gm Documented by: Lidocaine (Lidoderm 5%) 700 mg TRDERM DAILY@2100 [facility] Last Admin: 05/27/20 21:52 Dose: Not Given Documented by: Mirtazapine (Remeron) 15 mg PO BEDTIME [facility] Last Admin: 05/27/20 21:52 Dose: Not Given Documented by: Miscellaneous Information (Remove Patch) 1 ea TRDERM DAILY [facility] Last Admin: 05/28/20 08:55 Dose: Not Given Documented by: Multivitamins (Thera) 1 each PO DAILY [facility] Last Admin: 05/28/20 08:56 Dose: 1 each Documented by: Omeprazole (Omeprazole) 20 mg PO ACBREAKFAST [facility] Last Admin: 05/28/20 05:36 Dose: 20 mg Documented by: Ondansetron HCl (Zofran Odt) 4 mg PO Q6H PRN PRN Reason: nausea, able to take PO Polyethylene Glycol (Miralax) 17 gm PO DAILY [facility] Last Admin: 05/28/20 08:55 Dose: Not Given Documented by: Senna/Docusate Sodium (Senna Plus) 1 tab PO BID [facility] Last Admin: 05/28/20 08:56 Dose: 1 tab Documented by: Temazepam (Restoril) 15 mg PO BEDTIME PRN PRN Reason: Sleep Tramadol HCl (Ultram) 50 mg PO Q8H PRN PRN Reason: Pain (moderate 4-6) Discontinued Medications Hydrocodone Bitart/Acetaminophen ([place] 325-10 Mg) 1 tab PO Q4H PRN PRN Reason: Pain (moderate 4-6) Last Admin: 05/23/20 21:45 Dose: 1 tab Documented by: Hydrocodone Bitart/Acetaminophen ([place] 325-10 Mg) 1 tab PO Q6H PRN PRN Reason: Pain (severe 7-10) Amlodipine Besylate (Norvasc) 2.5 mg PO ONETIME ONE Stop: 05/18/20 04:55 Last Admin: 05/18/20 05:06 Dose: 2.5 mg Documented by: Heparin Sodium (Porcine) (Heparin Sodium) 5,000 units SUBCUT Q8HR [facility] Last Admin: 05/13/20 13:45 Dose: 5,000 units Documented by: Hydrocortisone (Hydrocortisone 2.5% Crm) 0 gm TOP DAILY [facility] Last Admin: 05/13/20 08:50 Dose: Not Given Documented by: Lidocaine (Lidoderm 5%) 700 mg TRDERM DAILY [facility] Last Admin: 05/24/20 15:07 Dose: Not Given Documented by: Non-Formulary Medication (L. Acidophilus/Pectin, Riley [Acidophilus Capsule]) 10 mg PO DAILY [facility] Last Admin: 05/14/20 22:07 Dose: Not Given Documented by: Tramadol HCl (Ultram) 50 mg PO Q8H PRN PRN Reason: Pain (moderate 4-6) Last Admin: 05/24/20 21:25 Dose: 50 mg Documented by: - Exam General: Reports: Alert, Oriented HEENT: Reports: Pupils Equal, Pupils Reactive, EOMI, Mucous Membr. Moist/[place]: Reports: Supple Lungs: Reports: Clear to Auscultation, Normal Respiratory Effort Cardiovascular: Reports: Regular Rate, Regular Rhythm GI/Abdominal Exam: Normal Bowel Sounds, Soft, Non-Tender, No Organomegaly, No Distention, No Abnormal Bruit, No Mass, Pelvis Stable Back Exam: Reports: Normal Inspection, Full Range of Motion Extremities: Normal Inspection, Normal Range of Motion, Non-Tender, No Pedal Edema, Normal Capillary Refill Skin: Reports: Warm, Dry, Intact Neurological: Reports: No New Focal Deficit Psy/Mental Status: Reports: Alert, Normal Affect, Normal Mood
== END 2020-05-28 14:37 | disposition home health service (06) | DRG 948 ==
LOC: DL.MS 10:58 → UNDOADMIN 10:58 → DL.MS 11:09
PROVIDERS: ADMIT Hospitalist; ATTEND Internal Medicine
DX: R53.1 Weakness (principal); K21.9 Gastro-esophageal reflux disease without esophagitis; H54.7 Unspecified visual loss; I10 Essential (primary) hypertension; M19.90 Unspecified osteoarthritis, unspecified site; M54.2 Cervicalgia; G89.29 Other chronic pain; M54.5 Low back pain; M48.061 Spinal stenosis, lumbar region without neurogenic claudication; Z98.890 Other specified postprocedural states; Z88.8 Allergy status to other drugs, medicaments and biological substances; Z88.2 Allergy status to sulfonamides; Z88.1 Allergy status to other antibiotic agents; Z79.899 Other long term (current) drug therapy; R03.0 Elevated blood-pressure reading, without diagnosis of hypertension
CPT/HCPCS: 36415; 80048; 85025; 97110-GO; 97110-GP; 97116-GP; 97162-GP; 97166-GO; 97530-GO; 97535-GO; A9270-GY; J1644; J1650